=== PATIENT | female | born 1995 | race Caucasian/White ===

== ENCOUNTER 2017-07-05 17:37 | Inpatient (IN) | payer SELFPAY ==
[2017-07-05] MEDS ORDERED: LIDOCAINE HCL 50 ML VIAL PERI PRN (18:06)
[2017-07-05] MEDS ORDERED: DEXTROSE 5%-LACTATED RINGERS 1,000 ML IV PRN (18:06)
[2017-07-05] MEDS ORDERED: RINGER'S SOLUTION,LACTATED 1,000 ML IV ONE (18:06)
[2017-07-05] MEDS ORDERED: RINGER'S SOLUTION,LACTATED 1,000 ML IV PRN (18:06)
[2017-07-05] MEDS ORDERED: OXYTOCIN/DEXTROSE 5%-WATER 30 UNITS/500 ML BAG IV ONE ×2 (18:06→19:07)
[2017-07-05] MEDS ORDERED: ONDANSETRON HCL/PF 2 MG/ML VIAL IV PRN ×2 (18:06→18:27)
[2017-07-05] MEDS ORDERED: NALOXONE HCL 1 MG/1 ML SYRG IV PRN (18:27)
[2017-07-05] MEDS ORDERED: BUPIVACAINE HCL/0.9 % NACL/PF 250 ML EP PRN (18:27)
[2017-07-05 18:30] LABS: Hematocrit 31.4 % (37.0-47.0); Hemoglobin 10.9 gm/dL (12.5-16.0); Mean Cell Volume 83.1 fl (78-100); Mean Corpuscular Hemoglobin 28.8 pg (27-31); Mean Corpuscular Hgb Conc 34.7 g/dl (32-36); Mean Platelet Volume 10.4 fl (6.0-9.5); Neutrophil # 9.1 K/mm3 (1.3-6.0); Neutrophil % 83.9 % (42-75.0); Platelet Count 146 K/mm3 (150-450); Red Blood Count 3.78 M/mm3 (4.2-5.4); Red Cell Distribution Width 13.2 % (11.5-14.0); White Blood Count 10.8 K/mm3 (4.0-10.5)
[2017-07-05] MEDS ORDERED: fentaNYL CITRATE/PF 50 MCG/ML AMPUL IT SCH (18:30)
[2017-07-05] MEDS ORDERED: LIDOCAINE HCL 50 ML VIAL ONE (18:44)
[2017-07-05] MEDS ORDERED: LIDOCAINE HCL 50 ML VIAL IJ PRN (18:45)
[2017-07-05] MEDS ORDERED: BENZOCAINE/MENTHOL 81 SPRAY CAN TP PRN (19:07)
[2017-07-05] MEDS ORDERED: SENNOSIDES 8.6 MG TABLET PO PRN (19:07)
[2017-07-05] MEDS ORDERED: GLYCERIN/WITCH HAZEL LEAF 40 APPL BOX TP PRN (19:07)
[2017-07-05] MEDS ORDERED: HYDROCORTISONE 30 APPL TUBE TP PRN (19:07)
[2017-07-05] MEDS ORDERED: IBUPROFEN 800 MG TABLET PO PRN (19:07)
[2017-07-05] MEDS ORDERED: oxyCODONE HCL/ACETAMINOPHEN 1 TAB TABLET PO PRN (19:07)
[2017-07-05] MEDS ORDERED: BISACODYL 10 MG SUPP.RECT RC PRN (19:07)
--- NOTE | 2017-07-05 19:24 | OR ---
Operative Report - Dictated Report Narrative: Spontaneous Vaginal Delivery Viable male with APGARS of 9 at 1 minute and 9 at 5 minutes. She delivered at 1852. Presentation was NIKIA. Nuchal cord was noted. The anterior and posterior shoulder delivered without difficulty. Followed by the remainder of the baby. He was placed on the maternal abdomen and dried and stimulated and the cord was clamped and cut after approximately 60 seconds. Weight: 7 pounds 11.5 ounces, or 3503grams Placenta was delivered spontaneously and intact. No lacerations were noted. Estimated blood loss: 150 ml Mother and baby tolerated delivery well. History for Definition: * The number of deliveries resulting in a live the patient experienced prior to current hospitalization * The previous delivery of live twins or any live multiple gestation is considered one live event. *If primagravida or nulliparous is documented select zero for the number of previous live births. Live Events: 2
[2017-07-05] MEDS: DOCUSATE SODIUM 100 MG CAPSULE PO SCH (23:40)
--- NOTE | 2017-07-06 09:05 | PN ---
Progess Note - Interim Date: 07/06/17 Time: 09:04 Narrative: 07/06/17 09:04 progress note Subjective: The patient is doing well. She is ambulating, voiding, tolerating by mouth. She has minimal pain and moderate lochia. Objective: General: No acute distress Abdomen: Soft, nontender, fundus is firm just below the umbilicus Extremities: minimal edema, nontender to palpation Assessment and plan: day 1 Feeding: Breast Pain: Controlled with by mouth medication control: nexplanon Routine care.
[2017-07-06] MEDS: DOCUSATE SODIUM 100 MG CAPSULE PO SCH ×2 (17:23→20:11)
[2017-07-07 07:35] VITALS: BP 128/58
[2017-07-07] MEDS: DOCUSATE SODIUM 100 MG CAPSULE PO SCH (08:59)
--- NOTE | 2017-07-07 09:32 | PN ---
Progess Note - Interim Date: 07/07/17 Time: 09:31 Narrative: 07/07/17 09:32 progress note Subjective: The patient is doing well. She is ambulating, voiding, tolerating by mouth. She has minimal pain and moderate lochia. Objective: General: No acute distress Abdomen: Soft, nontender, fundus is firm just below the umbilicus Extremities: minimal edema, nontender to palpation Assessment and plan: day 2 Feeding: Breast Pain: Controlled with by mouth medication control: nexplanon Routine care.
[2017-07-07 11:56] LABS: Hep B Surface Antigen Confirm DNR
[2017-07-07 11:58] LABS: Hepatitis B Surface Antigen NON-REACTIVE (NON-REACTIVE)
== END 2017-07-07 13:15 | disposition home or self-care (01) | DRG 775 ==
LOC: OBCLINIC 17:37 → OB 18:08
PROVIDERS: ADMIT Obstetrics & Gynecology Gynecologic Oncology; ATTEND Obstetrics & Gynecology Gynecologic Oncology
PROC: 10E0XZZ Delivery of Products of Conception, External Approach (ICD-10-PCS; principal; 2017-07-05)
PROC: 4A1HXCZ Monitoring of Products of Conception, Cardiac Rate, External Approach (ICD-10-PCS; 2017-07-05)
PROC: 00HU33Z Insertion of Infusion Device into Spinal Canal, Percutaneous Approach (ICD-10-PCS; 2017-07-05)
DX: O62.3 Precipitate labor (principal); O69.81X0 Labor and delivery complicated by cord around neck, without compression, not applicable or unspecified; Z3A.40 40 weeks gestation of pregnancy; Z37.0 Single live birth; F17.210 Nicotine dependence, cigarettes, uncomplicated; J45.909 Unspecified asthma, uncomplicated

== ENCOUNTER 2018-09-28 04:15 | Inpatient (IN) ==
[2018-09-28] MEDS ORDERED: HYDROCORTISONE 30 APPL TUBE TP PRN (04:47)
[2018-09-28] MEDS ORDERED: BISACODYL 10 MG SUPP.RECT RC PRN (04:47)
[2018-09-28] MEDS ORDERED: IBUPROFEN 800 MG TABLET PO PRN (04:47)
[2018-09-28] MEDS ORDERED: diphenhydrAMINE HCL 25 MG CAPSULE PO PRN (04:47)
[2018-09-28] MEDS ORDERED: OXYTOCIN/DEXTROSE 5%-WATER 30 UNITS/500 ML BAG IV ONE (04:47)
[2018-09-28] MEDS ORDERED: oxyCODONE HCL/ACETAMINOPHEN 1 TAB TABLET PO PRN ×2 (04:47)
[2018-09-28] MEDS ORDERED: GLYCERIN/WITCH HAZEL LEAF 40 APPL BOX TP PRN (04:47)
[2018-09-28] MEDS ORDERED: SENNOSIDES 8.6 MG TABLET PO PRN (04:47)
[2018-09-28] MEDS ORDERED: BENZOCAINE/MENTHOL 81 SPRAY CAN TP PRN (04:47)
[2018-09-28 05:35] LABS: Hematocrit 32.7 % (37.0-47.0); Hemoglobin 10.7 gm/dL (12.5-16.0); Mean Cell Volume 89.3 fl (78-100); Mean Corpuscular Hemoglobin 29.2 pg (27-31); Mean Corpuscular Hgb Conc 32.7 g/dl (32-36); Mean Platelet Volume 10.4 fl (8-12.5); Neutrophil # 9.3 K/mm3 (1.3-6.0); Neutrophil % 73.1 % (42-75.0); Platelet Count 205 K/mm3 (150-450); Red Blood Count 3.66 M/mm3 (4.2-5.4); Red Cell Distribution Width 12.6 % (11.5-14.0); White Blood Count 12.7 K/mm3 (4.0-10.5)
[2018-09-28 05:41] LABS: Cocaine Ur Negative (NEGATIVE); Urine Barbiturate Negative (NEGATIVE); Urine Benzodiazepines Negative (NEGATIVE); Urine Opiates Negative (NEGATIVE); Urine PCP Negative (NEGATIVE); Urine THC Negative (NEGATIVE)
[2018-09-28] MEDS: DOCUSATE SODIUM 100 MG CAPSULE PO SCH ×2 (09:25→20:28)
--- NOTE | 2018-09-28 11:30 | CONS ---
[facility] - General Date of Service: 09/28/18 Narrative: I was asked to see Manuel by Dr. Umana for irregular heart rate and wheezing. Manuel reports being told she had an irregular heart rate about 10 years ago, but has not heard anyone say anything since then. She does not routinely seek medical care. She reports no routine medications or medical concerns. She reports she does smoke and wakes up each morning with a cough, but once that's clear she has no problems. She reports she is pretty active and never notices shortness of breath, palpitations, chest pain, or any other concerns. She does not use an inhaler currently, but did as a child. She does not feel like she needs an inhaler. Source: patient - History of Present Illness Allergies/Adverse Reactions: Allergies amoxicillin Allergy (Verified 09/28/18 05:21) Penicillins Allergy (Verified 09/28/18 05:21) Medications - Medications Current Medications: Current Medications Docusate Sodium (Colace) 100 mg PO BID BRYCE Stop: 10/28/18 09:01 Last Admin: 09/28/18 09:25 Dose: 100 mg Documented by: Review of Systems - Review of Systems Generalized/Overall Review: Absent: Weakness, Chills, Fever EENTM: Present: No Symptoms Reported Respiratory: Absent: Cough, Shortness of Breath, Wheezing Cardiac: Absent: Chest Pain, Edema, Palpitations, Syncope Abdominal: Absent: Nausea, Vomiting Genitourinary: Present: No Symptoms Reported Musculoskeletal: Present: No Symptoms Reported Neurological: Present: No Symptoms Reported Skin: Present: No Symptoms Reported Endocrine: Present: No Symptoms Reported Physical Examination - Exam Vital Signs: Vital Signs - Last Taken Temp 36.3 C 09/28/18 10:26 Pulse 71 09/28/18 10:26 Resp 14 09/28/18 10:26 BP 118/84 09/28/18 10:26 Pulse Ox 99 09/28/18 10:26 O2 Oxygen Delivery Method Room Air Constitutional: Present: Alert, Oriented x3, Cooperative ENT Exam: Present: hearing grossly normal Eye Exam: bilateral eye: normal inspection Respiratory: Present: wheezing - diffuse Cardiovascular/Chest: Present: no murmur, irregularly irregular Peripheral Pulses: radial (R): 2+, radial (L): 2+ Abdomen: Present: Normal bowel sounds, soft, nondistended Skin Exam: Present: normal color, warm/dry, no cyanosis Neurologic: Present: alert, normal mood/affect, oriented x 3 Appearance: Present: appropriate appearance, appropriate insight Eye contact: Present: cooperative, good eye contact, normal speech Thoughts: Present: normal thought pattern, no apparent hallucination - Results and Findings: Lab/Microbiology results last 24 hrs: Abnormal/Pending Laboratory Last 24 HRS 09/28/18 05:00 WBC 12.7 H RBC 3.66 L Hgb 10.7 L Hct 32.7 L Immature Gran # (Auto) 0.05 H Neutrophils # 9.3 H - Assessments/Findings (1) Sinus arrhythmia Diagnosis(s): Sinus arrhythma - This is a normal variant and she is asymptomatic. There is no concern or treatment needed. No follow up needed. Problem: Acute (2) Asthma, mild intermittent Diagnosis(s): She has mild intermittent asthma that is asymptomatic. Discussed use of prn al buterol inhalers, but she does not feel that she would need this. She reports being very active and does not notice wheezing or shortness of breath. As she is asymptomatic she does not need any treatment unless she becomes symptomatic. Problem: Acute Qualifiers: Asthma complication type: uncomplicated Qualified Code(s): J45.20 - Mild intermittent asthma, uncomplicated
--- NOTE | 2018-09-28 13:19 | HP ---
Chief Complaint - Chief Complaint Date of Service: 09/28/18 Time of Service: 09:00 Chief Complaint: s/p vaginal delivery History of Present Illness: The patient is a 23 year old s/p vaginal delivery at [facility] last evening right before midnight. The patient was transferred to [facility] for care. She delivered a viable female infant at [facility]. She also delivered the placenta there. This morning she denies any heavy vaginal bleeding. She denies CP/SOB. The patient did not have any care. Medical History (Updated 09/28/18 @ 12:09 by Cassidy Lazaro RN) Smoker since age 12 childhood asthma no current problems Surgical History: Surgical History (Updated 09/28/18 @ 13:07 by Tiffany Umana MD) No pertinent past surgical history Family History: Family History (Last Updated 09/28/18 @ 12:09 by Cassidy Lazaro RN) Grandmother Breast cancer Grandfather Prostate cancer COPD (chronic obstructive pulmonary disease) Social History: Patient Lives/Resources Home Utilized Preferred Language Estonian Do you have any gnosticist or No cultural preference? Smoking Status Current every day smoker Have you smoked in the past 12 Yes months Do you dip or chew tobacco No No Social History Section defined Review Of Systems (GEN) - Review of Systems Generalized/Overall Review: Present: No Symptoms Reported Misc: All systems neg except as marked Allergies/Adverse Reactions: Allergies Allergy/AdvReac Type Severity Reaction Status Date / Time amoxicillin Allergy Verified 09/28/18 05:21 Penicillins Allergy Verified 09/28/18 05:21 Exam - Exam Vital Signs: Vital Signs - Last Taken Temp 36.3 C 09/28/18 10:26 Pulse 71 09/28/18 10:26 Resp 14 09/28/18 10:26 BP 118/84 09/28/18 10:26 Pulse Ox 99 09/28/18 10:26 Constitutional: Present: Alert, Oriented x3, Cooperative, No distress Respiratory: Present: lungs clear, normal breath sounds Cardiovascular/Chest: Present: regular rate, rhythm, no murmur, other - irregular heart rate Abdomen: Present: Normal bowel sounds, soft, nontender, nondistended Extremity: Present: non-tender, no calf tenderness Skin Exam: Present: normal color, warm/dry, no cyanosis Appearance: Present: appropriate appearance Eye contact: Present: cooperative Thoughts: Present: normal thought pattern Diagnostic Studies: Abnormal Lab Results 09/28/18 Range/Units 05:00 WBC 12.7 H (4.0-10.5) K/mm3 RBC 3.66 L (4.2-5.4) M/mm3 Hgb 10.7 L (12.5-16.0) gm/dL Hct 32.7 L (37.0-47.0) % Immature Gran # (Auto) 0.05 H (0.000-0.0310) K/mm3 Neutrophils # 9.3 H (1.3-6.0) K/mm3 Laboratory Results WBC 12.7 K/mm3 (4.0-10.5) H 09/28/18 05:00 RBC 3.66 M/mm3 (4.2-5.4) L 09/28/18 05:00 Hgb 10.7 gm/dL (12.5-16.0) L 09/28/18 05:00 Hct 32.7 % (37.0-47.0) L 09/28/18 05:00 MCV 89.3 fl (78-100) 09/28/18 05:00 MCH 29.2 pg (27-31) 09/28/18 05:00 MCHC 32.7 g/dl (32-36) 09/28/18 05:00 RDW 12.6 % (11.5-14.0) 09/28/18 05:00 Plt Count 205 K/mm3 (150-450) 09/28/18 05:00 MPV 10.4 fl (8-12.5) 09/28/18 05:00 Immature Gran % (Auto) 0.40 % (0.001-0.429) 09/28/18 05:00 Immature Gran # (Auto) 0.05 K/mm3 (0.000-0.0310) H 09/28/18 05:00 73.1 % (42-75.0) 09/28/18 05:00 21.1 % (20-51) 09/28/18 05:00 5.0 % (0.0-9) 09/28/18 05:00 0.2 % (0.0-3.0) 09/28/18 05:00 0.2 % (0.0-1.0) 09/28/18 05:00 Nucleated RBC % 0.0 k/mm3 (0-1) 09/28/18 05:00 9.3 K/mm3 (1.3-6.0) H 09/28/18 05:00 2.69 k/mm3 (1.5-3.5) 09/28/18 05:00 0.6 k/mm3 (0.0-1.0) 09/28/18 05:00 0.0 k/mm3 (0.0-0.7) 09/28/18 05:00 Absolute Basophils 0.0 k/mm3 (0.0-0.1) 09/28/18 05:00 Negative (NEGATIVE) 09/28/18 05:00 Negative (NEGATIVE) 09/28/18 05:00 Ur Phencyclidine Scrn Negative (NEGATIVE) 09/28/18 05:00 Urine Amphetamine Negative (NEGATIVE) 09/28/18 05:00 U Benzodiazepines Scrn Negative (NEGATIVE) 09/28/18 05:00 Negative (NEGATIVE) 09/28/18 05:00 Negative (NEGATIVE) 09/28/18 05:00 Spec to path 09/28/18 04:47 Assessment/Plan - Narrative Narrative: 23 year old s/p with no care and unknown gestational age. By approximate LMP in March the patient was about 28 weeks but her baby actually looks postdates. The placenta came with the patient and it was sent to pathology given no care. I asked the patient why she did not have care and she stated many reasons for not having care. I emphasized the importance of obtaining care for subsequent pregnancies as she did not have care her last either. PNL were ordered, GC/CT ordered, UDS ordered GBS collected per request from Pediatrics I discussed contraception for the patient. Initially, she inquired about a tubal ligation but then she was unsure and wanted reversible contraception rather than permanent contraception. She was counseled regarding a Mirena IUD. She had heard many adverse outcomes with an IUD but the patient was educated on the safety and high acceptance rate of a Mirena IUD. However, I did explain that in order for her to have the IUD placed she would have to come to her follow-up. I explained that she should refrain from intercourse as she could achieve as soon as 21-25 days after delivery.
--- NOTE | 2018-09-29 08:09 | PN ---
Subjective - Date and Time Seen Date: 09/29/18 Time: 08:08 Subjective Narrative: Pt without complaints Objective Objective Narrative: See vital signs - Review of Systems Generalized/Overall Review: Reports: No Symptoms Reported Misc: All systems neg except as marked - Vitals Vitals: Last Vital Signs Temp 36.3 C 09/29/18 07:33 Pulse 84 09/29/18 07:33 Resp 14 09/29/18 07:33 BP 135/64 09/29/18 07:33 Pulse Ox 97 09/29/18 07:33 - Exam Constitutional: Present: Alert, Oriented x3, Cooperative, No distress Abdomen: Present: soft, nontender, nondistended Extremity: Present: non-tender, no calf tenderness Skin Exam: Present: normal color, warm/dry, no cyanosis Appearance: Present: appropriate appearance Eye contact: Present: cooperative Thoughts: Present: normal thought pattern Assessment/Plan Plan Narrative: PPD 2 s/p Doing well Discharge home
[2018-09-29] MEDS: DOCUSATE SODIUM 100 MG CAPSULE PO SCH ×2 (08:58→22:08)
[2018-09-29 12:52] LABS: Hep B Surface Antigen Confirm DNR
[2018-09-29 13:38] LABS: Hepatitis B Surface Antigen NON-REACTIVE (NON-REACTIVE)
[2018-09-29 23:32] VITALS: BP 117/75
== END 2018-09-29 23:51 | disposition home or self-care (01) | DRG 776 ==
LOC: OB 04:15
PROVIDERS: ADMIT Obstetrics & Gynecology; ATTEND Obstetrics & Gynecology
DX: O99.89 Other specified diseases and conditions complicating pregnancy, childbirth and the puerperium; F17.210 Nicotine dependence, cigarettes, uncomplicated; O09.33 Supervision of pregnancy with insufficient antenatal care, third trimester; Z3A.40 40 weeks gestation of pregnancy; I49.9 Cardiac arrhythmia, unspecified; J45.20 Mild intermittent asthma, uncomplicated
CPT/HCPCS: 36415; 80307; 85025; 86592; 86689; 86703; 86762; 87081; 87340; 87491; 87591; 88307; 93005